=== PATIENT | male | born 1950 | race Caucasian/White ===

== ENCOUNTER 2016-11-01 08:46 | Outpatient (CLI) | payer MEDICARE ==
[~2016-11-01] VITALS: Ht 180.3 cm; Wt 83.9 kg
[~2016-11-01 08:46] MED LIST: AMLO5TAB2 PO; CIPR500T94 PO; LACT1CAP8 PO; LANS15CA66 PO; LISI-334 PO; MULT1TAB52 PO; OMEP20CA9 PO
[2016-11-01] MEDS ORDERED: LIDOCAINE 1% / SOD BICARB 8.4% 20 ML VIAL. IJ ONE ×2 (09:41→10:15)
[2016-11-01 09:48] VITALS: BP 145/100
[2016-11-01] MEDS ORDERED: NALOXONE 0.4 MG/ML VIAL. ONE (09:54)
[2016-11-01] MEDS ORDERED: FLUMAZENIL 0.5 MG/5 ML VIAL. IV ONE (09:55)
[2016-11-01] MEDS ORDERED: FENTANYL PF 100 MCG/2 ML VIAL. ONE (09:55)
[2016-11-01] MEDS ORDERED: MIDAZOLAM HCL 2 MG/2 ML VIAL. ONE (09:55)
--- NOTE | 2016-11-01 10:33 | PDOC ---
Provider Note Provider Note IR Note: Mr Pinto is 66 YO male s/p right radical nephrectomy. Subsequent [facility] CT from 10/19/16 revealed possible small post-op abscess. CT guided aspiration requested by Urologist. Preliminary CT images today revealed: Residual soft tissue thickening suggesting post-op scar; No residual gas bubbles or localized fluid collection to suggest abscess; No convex soft tissue mass effect to suggest residual/ recurrent tumor. Dr Gaviria contacted. Aspiration procedure deferred. LISA OGLESBY MD Nov 01, 2016 10:33
--- NOTE | 2016-11-01 16:18 | RAD ---
Limited noncontrast CT abdomen Indication: 66-year-old male who is status post radical right nephrectomy. A subsequent outside [facility] CT abdomen dated 10/19/2016 revealed a localized area of soft tissue thickening with tiny gas bubbles within superior aspect of the resection site. The possibility of postoperative abscess was suggested. CT-guided aspirate, with possible drain placement, has been requested by urology. Technique: Informed consent for possible CT-guided aspirate/drain placement was obtained from the patient. He was placed prone on the CT scanner. Preliminary noncontrast CT images were obtained through upper abdomen at 5 mm and 2 mm intervals. Correlation is made with the outside [facility] CT abdomen done 10/19/2016. Findings: Since the previous study there has been significant interval improvement. Previously present tiny gas bubbles have resolved. No localized fluid collection was seen. Postoperative soft tissue stranding persists, without convex margin to suggest residual/recurrent neoplasm. Due to these findings, referring urologist was contacted. The requested CT aspiration procedure was deferred. Impression: Postoperative soft tissue stranding/scarring, without persistent gas bubbles and without localized fluid collection to suggest abscess. Referring urologist was contacted. The requested CT aspiration procedure was deferred. PQRS Compliance Statement: One or more of the following individualized dose reduction techniques was/were utilized for this CT examination or procedure: 1. Automated exposure control. 2. Adjustment of mA and/or kV according to patient size. 3. Iterative reconstruction technique.
== END 2016-11-01 10:30 | disposition home or self-care (01) ==
LOC: INTRAD 08:46
PROVIDERS: ATTEND Urology
DX: M79.89 Other specified soft tissue disorders (principal); F17.210 Nicotine dependence, cigarettes, uncomplicated; I10 Essential (primary) hypertension; Z72.89 Other problems related to lifestyle; Z90.49 Acquired absence of other specified parts of digestive tract; K21.9 Gastro-esophageal reflux disease without esophagitis
CPT/HCPCS: 74150